=== PATIENT | male | born 1955 | race Caucasian/White ===

== ENCOUNTER → 2017-06-12 | Outpatient (CLI) | payer MEDICARE ==
--- NOTE | 2017-06-12 16:34 | ECHOS ---
Referral Reason:R07.9 chest pain MEASUREMENTS -------- HEIGHT: 172.7 cm WEIGHT: 97.5 kg BP: FINDINGS -------- Utilizing the standard Esteban protocol the patient was exercised for 9 minutes, 0seconds, achieving a maximum heart rate of135 , which is 86% of predicted maximal heart rate. There was physiologic heart rate and blood pressure response to exercise. Max Heart Rate: 135 % of Max Predicted Heart Rate: 86% Rest Heart Rate: 77 Rest BP: 149/74 Max BP: 210/100 Mets Achieved: 10.3 The test was stopped because of shortness of breath. This level of exercise represents a good exercise tolerance for age. Sinus rhythm. In response to stress, the ECG showed no ST-T wave changes (see exercise report for details). Rare PVC's In response to stress, the ECG showed no ST-T wave changes (see exercise report for details). There were normal blood pressure and heart rate responses to stress. LV size, wall thickness and systolic function are normal, with an EF of 60%. Echo images were acquired at peak stress which demonstrated appropriate augmentation of all left ventricular segments with slight decrease in cavity size. CONCLUSIONS -------- 1. This level of exercise represents a good exercise tolerance for age. 2. In response to stress, the ECG showed no ST-T wave changes (see exercise report for details). 3. No 2D echocardiographic evidence of inducible ischemia to achieved workload. MANUFACTURING QUALITY ENGINEER: Chaparrita Cabezas, MARY ANN MTDD
== END | disposition home or self-care (01) ==
LOC: RADNMMAIN 09:07
PROVIDERS: ATTEND Family Medicine
DX: R07.9 Chest pain, unspecified (principal); R06.02 Shortness of breath
CPT/HCPCS: 93017; 93350

== ENCOUNTER 2021-10-16 18:14 | Emergency (ER) | payer MEDICARE ==
[2021-10-16] MEDS ORDERED: guaiFENesin-DM 600/30MG 1 EACH TAB.ER.12H PO STA (21:23)
[2021-10-16] MEDS ORDERED: KETOROLAC 15 MG/ML 1 ML VIAL IVP STA (21:23)
[2021-10-16] MEDS ORDERED: DEXAMETHASONE SOD PHOSPHATE 10 MG/ML 1 ML VIAL IVP STA (21:23)
[2021-10-16] MEDS ORDERED: SODIUM CHLORIDE 0.9% 50 ML IVPB ONE (21:45)
[2021-10-16] MEDS ORDERED: BAMLANIVIMAB (EUA) 700 MG, ETESEVIMAB (EUA) 1,400 MG in SODIUM CHLORIDE 0.9% 50 ML IVPB ONE (21:45)
[2021-10-16] MEDS ORDERED: ALBUTEROL HFA INHALER INHALATION STA (22:20)
--- NOTE | 2021-10-16 22:50 | XR ---
EXAMINATION TYPE: XR chest 1V DATE OF EXAM: 10/16/2021 COMPARISON: NONE HISTORY: Cough TECHNIQUE: Single view FINDINGS: There is some patchy infiltrate with nodular peripheral densities in the left mid and lower lung field. There is lobulated masslike density at the left pulmonary hilum that measures 5 cm. Righ t lung is clear. There is multilevel fusion surgery in the thoracolumbar junction with paraspinal shelia s and screws. There is no heart failure. IMPRESSION: Masslike densities in the left hemithorax. This does not have appearance of pneumonia. Fo llow-up is recommended. CT scan would BE helpful for further evaluation if clinically indicated.
[2021-10-16 23:14] LABS: Basophils % (A) 0 %; Eosinophils # (A) 0.1 k/uL (0-0.7); Eosinophils % (A) 1 %; HCT 44.4 % (39.0-53.0); HGB 15.5 gm/dL (13.0-17.5); Lymphocytes # (A) 0.7 k/uL (1.0-4.8); Lymphocytes % (A) 7 %; MCH 29.7 pg (25.0-35.0); MCV 84.9 fL (80.0-100.0); Mean Platelet Volume 7.9; Monocytes # (A) 0.5 k/uL (0-1.0); Monocytes % (A) 5 %; Neutrophils # (A) 8.8 k/uL (1.3-7.7); Neutrophils % (A) 87 %; Platelet Count 277 k/uL (150-450); RBC 5.23 m/uL (4.30-5.90); RDW 12.9 % (11.5-15.5); WBC 10.1 k/uL (3.8-10.6)
[2021-10-16 23:23] LABS: ALT 161 U/L (4-49); AST 113 U/L (17-59); African American GFR (CKD) >90 (>60 ml/min/1.73 sqM); Albumin 4.1 g/dL (3.5-5.0); Alkaline Phosphatase 91 U/L (38-126); Anion Gap 11 mmol/L; Blood Urea Nitrogen 10 mg/dL (9-20); Calcium 8.8 mg/dL (8.4-10.2); Carbon Dioxide 23 mmol/L (22-30); Chloride 98 mmol/L (98-107); Glucose 148 mg/dL (74-99); Non-African American GFR(CKD) >90 (>60 ml/min/1.73 sqM); Sodium 132 mmol/L (137-145); Total Bilirubin 1.5 mg/dL (0.2-1.3); Total Protein 7.1 g/dL (6.3-8.2)
[2021-10-16 23:26] VITALS: TEMP 98.7
[2021-10-16] MEDS ORDERED: RX INFO: IV CONTRAST WAS GIVEN 1 EACH MISC MISCELLANE PRN (23:30)
--- NOTE | 2021-10-17 00:54 | CT ---
EXAMINATION TYPE: CT chest w con DATE OF EXAM: 10/17/2021 COMPARISON: None HISTORY: llung mass CT DLP: 466.3 mGycm Automated exposure control for dose reduction was used. CONTRAST: Performed with IV Contrast, patient injected with 100 mL of Isovue 300. There is lobulated partly calcified mass like density in the anterior mediastinum. This measures 8.5 x 7 cm. There is extensive masslike density involving the chest wall posteriorly and laterally in the left lower lobe. This measures up to 3.5 cm in thickness and there are small scattered calcification s. There is contrast opacification of the pulmonary arteries. I see no filling defects. Thoracic aorta i s intact. There is no aneurysm or dissection. There is some minimal interstitial density in the dwight shasta right upper lobe. There are small areas of subpleural interstitial density in the posterior rig ht lower lobe. There is no sign of right pleural effusion. There is no definite pleural fluid on the left side. There is some degenerative spurring at the thoracolumbar junction with anterior wedging. There is pos terior fusion surgery with spinal rods and screws stabilizing 8 compression fracture of T12. There is 30% loss of height. There is mild thoracolumbar kyphotic deformity. IMPRESSION: Extensive pleural-based masses in the left hemithorax in the left lower lobe region as well as large lobulated anterior mediastinal mass also involving the left pulmonary hilum. There are scattered punc decker calcifications. This could relate to advanced mesothelioma. Also consider lymphoma. No evidence of pulmonary embolism.
--- NOTE | 2021-10-17 01:30 | ED ---
SOB HPI - General Chief Complaint: Shortness of Breath Stated Complaint: sob Time Seen by Provider: 10/16/21 21:24 Source: patient Mode of arrival: wheelchair Limitations: no limitations - History of Present Illness Initial Comments: 65 year-old male patient presents to the emergency department for evaluation of shortness of breath, cough, nausea, and body aches. States symptoms started about three days ago. States last night his symptoms seemed to worsen and he had a difficult time breathing. States he had to sit up in his recliner. He denies any fever or chills. Denies sputum production with his cough. Denies vomiting or diarrhea. He has had decreased appetite but is able to eat and drink. He does have history of COPD. Denies any other medical problems. His physician was supposed to call him in some medications, but never reached his pharmacy. - Related Data Previous Rx's Medication Instructions Recorded Albuterol Sulfate [Proair Hfa] 1 - 2 puff INHALATION Q6HR PRN 10/17/21 #8.5 gm Dexamethasone 6 mg PO DAILY #9 tablet 10/17/21 Allergies Allergy/AdvReac Type Severity Reaction Status Date / Time Penicillins Allergy Unknown Verified 10/16/21 18:55 Review of Systems ROS Statement: Those systems with pertinent positive or pertinent negative responses have been documented in the HPI. ROS Other: All systems not noted in ROS Statement are negative. Past Medical History Past Medical History: COPD History of Any Multi-Drug Resistant Organisms: None Reported Past Surgical History: Back Surgery Past Psychological History: No Psychological Hx Reported Smoking Status: Former smoker Past Alcohol Use History: None Reported Past Drug Use History: Marijuana General Exam Limitations: no limitations General appearance: alert, in no apparent distress, other (This is a well- developed, well-nourished adult male patient in no acute distress.) Eye exam: Present: normal appearance, PERRL, EOMI. Absent: scleral icterus, conjunctival injection, periorbital swelling ENT exam: Present: normal exam, normal oropharynx, mucous membranes moist Respiratory exam: Present: normal lung sounds bilaterally. Absent: respiratory distress, wheezes, rales, rhonchi, stridor Cardiovascular Exam: Present: regular rate, normal rhythm, normal heart sounds. Absent: systolic murmur, diastolic murmur, rubs, gallop, clicks GI/Abdominal exam: Present: soft, normal bowel sounds. Absent: distended, tenderness, guarding, rebound, rigid Neurological exam: Present: alert, oriented X3, CN II-XII intact Psychiatric exam: Present: normal affect, normal mood Skin exam: Present: warm, dry, intact, normal color. Absent: rash Course Vital Signs 10/16/21 10/16/21 10/16/21 18:55 23:25 23:30 Temperature 98.5 F 98.7 F Pulse Rate 78 81 Respiratory 24 22 24 Rate Blood Pressure 157/91 157/80 O2 Sat by Pulse 98 98 Oximetry 10/17/21 10/17/21 00:00 01:51 Temperature Pulse Rate 88 74 Respiratory 22 18 Rate Blood Pressure 149/82 142/74 O2 Sat by Pulse 97 94 L Oximetry Medical Decision Making - Medical Decision Making 65-year-old male patient presenting to the emergency department for evaluation of upper respiratory symptoms, cough, shortness of breath the last 2-3 days. Physical examination did reveal clear equal lung sounds. He is afebrile. He was tested and did test positive for COVID. He did meet criteria to receive monoclonal antibodies. Chest xray did reveal mass-like densities in the left lung. CT chest was obtained and showed evidence for large mediastinal and peripheral lung masses which could be consistent with mesothelioma or lymphoma. I did discuss these findings with the patient informed him that these were most likely related to cancer. Patient does prefer to be discharged home to follow up outpatient with his primary care physician and oncology. He did tolerate monoclonal antibody infusion without difficulty. He is given steroids and inhaler. No signs are unremarkable. Return parameters were discussed in detail. He verbalizes understanding and agrees with this plan. Case discussed with my attending Dr. Gar. - Lab Data Result diagrams: 10/16/21 23:02 10/16/21 23:02 Lab Results 10/16/21 10/16/21 10/16/21 Range/Units 19:02 23:02 23:02 WBC 10.1 (3.8-10.6) k/uL RBC 5.23 (4.30-5.90) m/uL Hgb 15.5 (13.0-17.5) gm/dL Hct 44.4 (39.0-53.0) % MCV 84.9 (80.0-100.0) fL MCH 29.7 (25.0-35.0) pg MCHC 35.0 (31.0-37.0) g/dL RDW 12.9 (11.5-15.5) % Plt Count 277 (150-450) k/uL MPV 7.9 Neutrophils % 87 % Lymphocytes % 7 % Monocytes % 5 % Eosinophils % 1 % Basophils % 0 % Neutrophils # 8.8 H (1.3-7.7) k/uL Lymphocytes # 0.7 L (1.0-4.8) k/uL Monocytes # 0.5 (0-1.0) k/uL Eosinophils # 0.1 (0-0.7) k/uL Basophils # 0.0 (0-0.2) k/uL Sodium 132 L (137-145) mmol/L Potassium 4.0 (3.5-5.1) mmol/L Chloride 98 (98-107) mmol/L Carbon Dioxide 23 (22-30) mmol/L Anion Gap 11 mmol/L BUN 10 (9-20) mg/dL Creatinine 0.70 (0.66-1.25) mg/dL Est GFR (CKD-EPI)AfAm >90 (>60 ml/min/1.73 sqM) Est GFR (CKD-EPI)NonAf >90 (>60 ml/min/1.73 sqM) Glucose 148 H (74-99) mg/dL Calcium 8.8 (8.4-10.2) mg/dL Total Bilirubin 1.5 H (0.2-1.3) mg/dL AST 113 H (17-59) U/L ALT 161 H (4-49) U/L Alkaline Phosphatase 91 (38-126) U/L Total Protein 7.1 (6.3-8.2) g/dL Albumin 4.1 (3.5-5.0) g/dL Coronavirus (PCR) Detected A (Not Detectd) - Radiology Data Radiology results: report reviewed, image reviewed One view x-ray of the chest is obtained. Report was reviewed in its entirety. Impression by Dr. Barcenas shows masslike densities in the left hemithorax. This does not have appearance of pneumonia. CT chest with contrast was obtained. Report was reviewed in its entirety. Impression by Dr. Barcenas shows extensive pleural based masses in the left hemithorax on the left lower lobe region as well as a large lobulated anterior mediastinal mass also involving the left pulmonary hilum. There are scattered punctate calcifications. This could relate to advanced mesothelioma. Also consider lymphoma. No evidence of pulmonary embolism. Disposition Clinical Impression: COVID-19, Mass of left lung, Mediastinal mass Disposition: HOME SELF-CARE Condition: Good Instructions (If sedation given, give patient instructions): Coronavirus Disease 2019 (COVID-19), Lung Cancer (DC) Additional Instructions: Follow-up with the oncologist as soon as possible. Follow-up with your primary care physician for recheck in 1-2 days. Take the medications as directed. Return for any new, worsening, or concerning symptoms. Prescriptions: Dexamethasone 6 mg PO DAILY #9 tablet Albuterol Sulfate [Proair Hfa] 1 - 2 puff INHALATION Q6HR PRN #8.5 gm PRN Reason: Shortness Of Breath Is patient prescribed a controlled substance at d/c from ED?: No Referrals: David Malik DO [Primary Care Provider] - 1-2 days Delgado Nj MD [STAFF PHYSICIAN] - 1-2 days Time of Disposition: 01:29
[2021-10-17 01:53] VITALS: BP 142/74; PULSE 74; RESP 18
== END 2021-10-17 01:53 | disposition home or self-care (01) ==
LOC: EC 18:14
DX: U07.1 COVID-19 (principal); R91.8 Other nonspecific abnormal finding of lung field; J44.9 Chronic obstructive pulmonary disease, unspecified; Z88.0 Allergy status to penicillin; Z87.891 Personal history of nicotine dependence
CPT/HCPCS: 99285 ×2; 96375 ×2; 36415; 94640; 80053; 85025; 87635; 71045; 71260; M0243; J1100; J1885; Q9967; J3490; 96374

== ENCOUNTER 2021-10-21 02:56 | Emergency (ER) | payer MEDICARE ==
--- NOTE | 2021-10-21 03:20 | ED ---
SOB HPI - General Source: EMS Mode of arrival: EMS Limitations: no limitations - History of Present Illness MD Complaint: shortness of breath -: days(s) Consistency: constant Improves With: nothing Worsens With: nothing Known History Of: COPD Associated Symptoms: cough Treatments Prior to Arrival: none <Julian Gar - Last Filed: 10/21/21 07:16> <Aubrey Byrd - Last Filed: 10/21/21 09:51> - General Chief Complaint: Shortness of Breath Stated Complaint: Difficulty Breathing Time Seen by Provider: 10/21/21 03:06 - History of Present Illness Initial Comments: This patient is 65-year-old man who presents to be evaluated for dyspnea. The patient states that he started to feel bad last week. He came here on Thursday, was found to be code positive and also at that time was diagnosed with a left lung mass. The patient was given the monoclonal antibody therapy, was feeling a little better and went home to have outpatient follow-up for the left lung mass. The patient states that he has not been able to sleep since that time. He states every time he tries to go to sleep he will startle backed consciousness. Patient does continue to have some intermittent fever and chills. No chest p ain. No hemoptysis. No leg pain or swelling. (Julian Gar) - Related Data Home Medications Medication Instructions Recorded Confirmed Albuterol Sulfate [Proair Hfa] 1 - 2 puff INHALATION RT-QID PRN 10/21/21 10/21/21 Multivitamins, Thera [Multivitamin 1 tab PO DAILY 10/21/21 10/21/21 (formulary)] Previous Rx's Medication Instructions Recorded Dexamethasone 6 mg PO DAILY #9 tablet 10/17/21 LORazepam [Ativan] 0.5 mg PO HS 2 Days #2 tab 10/21/21 Allergies Allergy/AdvReac Type Severity Reaction Status Date / Time Penicillins Allergy Anaphylaxis Verified 10/21/21 07:48 Review of Systems ROS Other: All systems not noted in ROS Statement are negative. Constitutional: Reports: fever, chills Respiratory: Reports: cough, dyspnea. Denies: wheezes, hemoptysis Cardiovascular: Denies: chest pain, palpitations, orthopnea, edema, syncope Gastrointestinal: Denies: abdominal pain, vomiting, diarrhea Genitourinary: Denies: dysuria, hematuria Musculoskeletal: Denies: back pain Skin: Denies: rash Neurological: Denies: headache, weakness <CongJulian - Last Filed: 10/21/21 07:16> ROS Other: All systems not noted in ROS Statement are negative. <Aubrey Byrd - Last Filed: 10/21/21 09:51> ROS Statement: Those systems with pertinent positive or pertinent negative responses have been documented in the HPI. Past Medical History Past Medical History: COPD History of Any Multi-Drug Resistant Organisms: None Reported Past Surgical History: Back Surgery Past Psychological History: No Psychological Hx Reported Smoking Status: Former smoker Past Alcohol Use History: None Reported Past Drug Use History: Marijuana <CongJulian - Last Filed: 10/21/21 07:16> General Exam Limitations: no limitations General appearance: alert, anxious Head exam: Present: atraumatic, normocephalic Eye exam: Present: normal appearance. Absent: scleral icterus, conjunctival injection ENT exam: Present: normal oropharynx Neck exam: Present: normal inspection Respiratory exam: Present: rales (Few scattered rales). Absent: respiratory distress, wheezes, rhonchi, stridor, accessory muscle use, decreased breath sounds Cardiovascular Exam: Present: regular rate, normal rhythm, normal heart sounds. Absent: systolic murmur, diastolic murmur, rubs, gallop GI/Abdominal exam: Present: soft. Absent: distended, tenderness, guarding, rebound, rigid, mass Extremities exam: Present: normal inspection, normal capillary refill. Absent: pedal edema, calf tenderness Back exam: Present: normal inspection Neurological exam: Present: alert Skin exam: Present: warm, dry, intact, normal color. Absent: rash <CongJulian - Last Filed: 10/21/21 07:16> Course Vital Signs 10/21/21 10/21/21 10/21/21 03:02 06:36 07:24 Temperature 97.4 F L 98.0 F 98.4 F Pulse Rate 72 85 Respiratory 20 18 16 Rate Blood Pressure 149/93 150/104 131/98 O2 Sat by Pulse 97 94 L Oximetry 10/21/21 09:43 Temperature Pulse Rate Respiratory Rate Blood Pressure O2 Sat by Pulse 95 Oximetry Medical Decision Making - Lab Data Result diagrams: 10/21/21 06:35 10/21/21 06:35 - EKG Data -: EKG Interpreted by Me EKG shows normal: sinus rhythm, axis (Normal), intervals, QRS complexes (Normal), ST-T waves (Normal) Rate: normal (Rate 71 bpm.) <Julian Gar - Last Filed: 10/21/21 07:16> - Lab Data Result diagrams: 10/21/21 06:35 10/21/21 06:35 <Aubrey Byrd - Last Filed: 10/21/21 09:51> - Medical Decision Making Patient is sent out to me by previous shift physician, Dr. Gar. Briefly, patient is a 65-year-old male presents to the emergency department for difficulty in breathing patient was recently diagnosed with rotavirus. All signs upon arrival are within acceptable limits. Physical examination is benign. Patient is anxious appearing. Patient had elevated d-dimer 1.39. He does have a leukocytosis of 17.1. Mildly hyponatremic at 130. Rest of vitals within acceptable limits. Plan at sign out was to follow-up with pending CT angio of the chest CT angio is unremarkable. Does show evidence of chronic virus. Patient reevaluated at bedside at 9:45 AM. He is well-appearing and not dyspneic. Ambulatory pulse ox is normal. Patient be discharged. Patient given 2 tablets to help treat his insomnia. (Aubrey Byrd) - Lab Data Lab Results 10/21/21 10/21/21 10/21/21 Range/Units 06:35 06:35 06:35 WBC 17.1 H (3.8-10.6) k/uL RBC 5.66 (4.30-5.90) m/uL Hgb 16.3 (13.0-17.5) gm/dL Hct 47.3 (39.0-53.0) % MCV 83.5 (80.0-100.0) fL MCH 28.8 (25.0-35.0) pg MCHC 34.5 (31.0-37.0) g/dL RDW 12.3 (11.5-15.5) % Plt Count 501 H (150-450) k/uL MPV 8.0 Neutrophils % 96 % Lymphocytes % 2 % Monocytes % 2 % Eosinophils % 0 % Basophils % 0 % Neutrophils # 16.4 H (1.3-7.7) k/uL Lymphocytes # 0.4 L (1.0-4.8) k/uL Monocytes # 0.3 (0-1.0) k/uL Eosinophils # 0.0 (0-0.7) k/uL Basophils # 0.0 (0-0.2) k/uL Hyperchromasia Slight PT 12.5 H (9.0-12.0) sec INR 1.2 H (<1.2) APTT 21.8 L (22.0-30.0) sec D-Dimer 1.39 H (<0.60) mg/L FEU Sodium 130 L (137-145) mmol/L Potassium 4.1 (3.5-5.1) mmol/L Chloride 99 (98-107) mmol/L Carbon Dioxide 20 L (22-30) mmol/L Anion Gap 11 mmol/L BUN 16 (9-20) mg/dL Creatinine 0.72 (0.66-1.25) mg/dL Est GFR (CKD-EPI)AfAm >90 (>60 ml/min/1.73 sqM) Est GFR (CKD-EPI)NonAf >90 (>60 ml/min/1.73 sqM) Glucose 121 H (74-99) mg/dL Plasma Lactic Acid Jack (0.7-2.0) mmol/L Calcium 9.2 (8.4-10.2) mg/dL Total Bilirubin 2.5 H (0.2-1.3) mg/dL AST 30 (17-59) U/L ALT 52 H (4-49) U/L Alkaline Phosphatase 92 (38-126) U/L Troponin I (0.000-0.034) ng/mL NT-Pro-B Natriuret Pep pg/mL Total Protein 7.0 (6.3-8.2) g/dL Albumin 3.8 (3.5-5.0) g/dL 10/21/21 10/21/21 10/21/21 Range/Units 06:35 06:35 06:35 WBC (3.8-10.6) k/uL RBC (4.30-5.90) m/uL Hgb (13.0-17.5) gm/dL Hct (39.0-53.0) % MCV (80.0-100.0) fL MCH (25.0-35.0) pg MCHC (31.0-37.0) g/dL RDW (11.5-15.5) % Plt Count (150-450) k/uL MPV Neutrophils % % Lymphocytes % % Monocytes % % Eosinophils % % Basophils % % Neutrophils # (1.3-7.7) k/uL Lymphocytes # (1.0-4.8) k/uL Monocytes # (0-1.0) k/uL Eosinophils # (0-0.7) k/uL Basophils # (0-0.2) k/uL Hyperchromasia PT (9.0-12.0) sec INR (<1.2) APTT (22.0-30.0) sec D-Dimer (<0.60) mg/L FEU Sodium (137-145) mmol/L Potassium (3.5-5.1) mmol/L Chloride (98-107) mmol/L Carbon Dioxide (22-30) mmol/L Anion Gap mmol/L BUN (9-20) mg/dL Creatinine (0.66-1.25) mg/dL Est GFR (CKD-EPI)AfAm (>60 ml/min/1.73 sqM) Est GFR (CKD-EPI)NonAf (>60 ml/min/1.73 sqM) Glucose (74-99) mg/dL Plasma Lactic Acid Jack 1.6 (0.7-2.0) mmol/L Calcium (8.4-10.2) mg/dL Total Bilirubin (0.2-1.3) mg/dL AST (17-59) U/L ALT (4-49) U/L Alkaline Phosphatase (38-126) U/L Troponin I <0.012 (0.000-0.034) ng/mL NT-Pro-B Natriuret Pep 115 pg/mL Total Protein (6.3-8.2) g/dL Albumin (3.5-5.0) g/dL Disposition <Julian Gar - Last Filed: 10/21/21 07:16> Is patient prescribed a controlled substance at d/c from ED?: Yes If prescribed controlled substance>3 days was MAPS reviewed?: Prescribed <3 Days <Aubrey Byrd - Last Filed: 10/21/21 09:51> Clinical Impression: COVID-19 Disposition: HOME SELF-CARE Condition: Good Instructions (If sedation given, give patient instructions): Coronavirus Disease 2019 (COVID-19) Prescriptions: LORazepam [Ativan] 0.5 mg PO HS 2 Days #2 tab Referrals: David Malik DO [Primary Care Provider] - 1-2 days
--- NOTE | 2021-10-21 06:16 | XR ---
EXAMINATION TYPE: XR chest 1V portable DATE OF EXAM: 10/21/2021 COMPARISON: 10/16/2021 HISTORY: Short of breath TECHNIQUE: FINDINGS: There is pleural thickening in the left hemithorax. There is increased masslike density laly und the left pulmonary hilum and aortic arch. The right lung is clear. There is no heart failure. The re are chest leads. IMPRESSION: Masslike densities in the left hemithorax without significant change compared to recent e xam. No heart failure.
[2021-10-21] MEDS ORDERED: LORazepam 2 MG/ML INJ IV STA (06:24)
[2021-10-21] MEDS ORDERED: IBUPROFEN 400 MG TAB PO STA (06:24)
[2021-10-21 06:51] LABS: Basophils % (A) 0 %; Eosinophils % (A) 0 %; HCT 47.3 % (39.0-53.0); HGB 16.3 gm/dL (13.0-17.5); Hyperchromasia Slight; Lymphocytes # (A) 0.4 k/uL (1.0-4.8); Lymphocytes % (A) 2 %; MCH 28.8 pg (25.0-35.0); MCHC 34.5 g/dL (31.0-37.0); MCV 83.5 fL (80.0-100.0); Monocytes # (A) 0.3 k/uL (0-1.0); Monocytes % (A) 2 %; Neutrophils # (A) 16.4 k/uL (1.3-7.7); Neutrophils % (A) 96 %; Platelet Count 501 k/uL (150-450); RBC 5.66 m/uL (4.30-5.90); RDW 12.3 % (11.5-15.5); WBC 17.1 k/uL (3.8-10.6)
[2021-10-21 07:03] LABS: ALT 52 U/L (4-49); AST 30 U/L (17-59); African American GFR (CKD) >90 (>60 ml/min/1.73 sqM); Albumin 3.8 g/dL (3.5-5.0); Alkaline Phosphatase 92 U/L (38-126); Anion Gap 11 mmol/L; Blood Urea Nitrogen 16 mg/dL (9-20); Calcium 9.2 mg/dL (8.4-10.2); Carbon Dioxide 20 mmol/L (22-30); Chloride 99 mmol/L (98-107); Glucose 121 mg/dL (74-99); Non-African American GFR(CKD) >90 (>60 ml/min/1.73 sqM); Potassium 4.1 mmol/L (3.5-5.1); Sodium 130 mmol/L (137-145); Total Bilirubin 2.5 mg/dL (0.2-1.3)
[2021-10-21 07:16] LABS: INR 1.2 (<1.2); Prothrombin Time 12.5 sec (9.0-12.0)
[2021-10-21 07:19] LABS: Partial Thromboplastin Time 21.8 sec (22.0-30.0)
[2021-10-21 07:28] VITALS: RESP 16; TEMP 98.4
--- NOTE | 2021-10-21 08:39 | CT ---
EXAMINATION TYPE: CT chest angio for PE DATE OF EXAM: 10/21/2021 COMPARISON: Chest x-ray earlier today and [address] chest 4 days ago. HISTORY: Possible PE, shortness of breath. CT DLP: 498.6 mGycm. Automated Exposure Control for Dose Reduction was Utilized. CONTRAST: CTA scan of the thorax is performed without and with IV Contrast, patient injected with 100 ml mL of Isovue 370, pulmonary embolism protocol. MIP Images are created on CT scanner and reviewed. 3D siomara nstructed images are created on an independent workstation and reviewed. FINDINGS: LUNGS: Lobulated heterogeneous hypodense partially calcified pleural-based masses in the posterior le ft lung are redemonstrated. Some nodular extension along the fissure in the left lung is seen. Increa sing multifocal areas of groundglass opacity in the right lung on current study. No pleural effusion or pneumothorax. Tracheobronchial tree is patent. Elevated left hemidiaphragm redemonstrated. MEDIASTINUM: There is persistent heterogeneous hypodense partially calcified mediastinal mass contigu ous with the pleural based masses causing mass effect at the level of the prevascular space There is suboptimal bolus with most dense contrast in the aorta versus pulmonary arteries, there is no central pulmonary embolism on this study. Smaller segmental and subsegmental PE cannot definitively excluded but not seen. There is abnormal low-density mass posterior to the ascending aorta in the paracarin al region axial image 57 redemonstrated. No cardiomegaly or pericardial effusion is seen. OTHER: Stable simple appearing 5.0 cm thin-walled cyst posteriorly in the right kidney. Postsurgical changes to the thoracolumbar spine is partially imaged. Increased kyphosis remains present. Prominent anterior spurring in the upper lumbar spine redemonstrated. Chronic mild/moderate compression type f racture at T12 level redemonstrated. 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 IMPRESSION: Suboptimal study without central pulmonary embolism. Persistent lobulated left-sided pleu ral based masses with similar mediastinal mass both with local mass effect. Findings worrisome for ne oplasm such as mesothelioma. Increasing multifocal groundglass opacities in the right lung could refl ect developing edema and/or infiltrates noted from most recent CT.
[2021-10-21 10:02] VITALS: BP 137/87; PULSE 90
== END 2021-10-21 10:00 | disposition home or self-care (01) ==
LOC: EC 02:56
DX: U07.1 COVID-19 (principal); J44.9 Chronic obstructive pulmonary disease, unspecified; Z87.891 Personal history of nicotine dependence; Z88.0 Allergy status to penicillin
CPT/HCPCS: 36415; 93005; 85379; 83880; 80053; 83605; 84484; 85025; 85610; 85730; 71045; 71275; 99285; 96374; J2060; Q9967

== ENCOUNTER → 2021-11-07 | Outpatient (CLI) | payer MEDICARE ==
--- NOTE | 2021-11-07 12:29 | XR ---
EXAMINATION TYPE: XR orbit detect foreign body DATE OF EXAM: 11/07/2021 COMPARISON: NONE HISTORY: Possible foreign body TECHNIQUE: 3 views submitted FINDINGS: There is a linear metallic density seen overlying the nasal bones which should be correlate d clinically. May be superficial to the patient. No definite foreign body within the visualized orbit s. Nasal septal deviation and changes of chronic sinusitis noted. IMPRESSION: 1. No metallic foreign body overlying the orbits. However there is a left linear metallic density yovanny ng the nasal bone. Difficult to determine if this is related to superficial structure correlate clini daniel prior to MRI.
--- NOTE | 2021-11-07 14:12 | MR ---
EXAMINATION TYPE: MR brain wo/w con DATE OF EXAM: 11/07/2021 COMPARISON: None HISTORY: Lung cancer, evaluate for metastatic disease. TECHNIQUE: Multiplanar, multisequence images of the brain and brainstem is performed without and with IV contras t, utilizing 8 mL intravenous Gadavist . FINDINGS: Diffusion weighted images demonstrate no evidence of a recent infarct or other diffusion ab normality. There is no extra-axial fluid collection. Scattered white matter hyperintensities are pre sent on inversion recovery T2-weighted seen within the periventricular and subcortical white matter, approximately 20-30 lesions are present. The ventricular system and cisternal spaces are normal in si ze and appearance. The brain volume is age appropriate. Midline structures demonstrate normal morphology. The craniocervical junction appears within normal limits. Post contrast images demonstrate lobular focus of enhancement at the level of the anterior c ommunicating artery in the right measuring approximately 5 to 6 mm, axial postcontrast image #42, bul bous appearance of the basilar tip may be normal variant. The dural venous sinuses appear patent. The visualized sinuses are remarkable for air-fluid level in the left maxillary sinus, bilateral mucosal disease in the maxillary sinuses, ethmoid air cells, sphenoid sinus and the globes are intact. IMPRESSION: Nonspecific white matter demyelination may be due to chronic small vessel ischemic change s. No evident metastatic disease. 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 Sinus disease.
== END | disposition home or self-care (01) ==
LOC: RADMRIMAIN 11:57
PROVIDERS: ATTEND Internal Medicine Hematology & Oncology
DX: C34.32 Malignant neoplasm of lower lobe, left bronchus or lung (principal)
CPT/HCPCS: 70030; 70553; A9585

== ENCOUNTER → 2021-11-08 | Outpatient (CLI) | payer MEDICARE ==
--- NOTE | 2021-11-11 14:57 | PE ---
Nuclear medicine PET/CT HISTORY: C 34.32, lung cancer on the left, initial Patient received 8.4 mCi F-18 FDG intravenously and delayed scanning was performed from skull base to the mid thighs. A localization and attenuation correction CT scan was performed. Correlation CT chest 10/21/2021 Chest and neck: There is no supraclavicular or cervical adenopathy. Groundglass areas of density in t he right upper lobe shows some mild associated uptake, SUV 4.3, an interval finding. There is diffuse lobular pleural-based soft tissue as noted on prior CT with mild associated uptake, SUV only 2.9-3.6 . Extensive abnormal soft tissue along the mediastinum with some associated calcification as noted on CT, there is mediastinal adenopathy, SUV 2.7 in the anterior mediastinum, 2.9 left hilar region. Pos terior pleural-based soft tissue nodule on axial image 97 the right lower lobe measures approximately 15 mm but does not show appreciable uptake. There is some additional subpleural soft tissue density in the right lower lobe which is an interval finding which does not show associated uptake. ABDOMEN: No suspicious uptake. No evident retroperitoneal adenopathy or adrenal mass. No liver mass i s evident. Cortical cyst is present at the upper pole of the right kidney without uptake. No ascites. Rectal uptake may be physiologic. Osseous structures show no associated uptake. Postop changes are noted in the lumbar spine, lower tho racic spine IMPRESSION: Extensive abnormal uptake within the chest and additional findings above
== END | disposition home or self-care (01) ==
LOC: RADPETMAIN 13:29
PROVIDERS: ATTEND Internal Medicine Hematology & Oncology
DX: C34.32 Malignant neoplasm of lower lobe, left bronchus or lung (principal)
CPT/HCPCS: 78815; A9552

== ENCOUNTER 2021-11-13 08:41 | Day surgery (SDC) | payer MEDICARE ==
[2021-11-13 09:24] VITALS: TEMP 98.5
[2021-11-13 09:24] LABS: Mean Platelet Volume 7.7; Platelet Count 378 k/uL (150-450)
[2021-11-13] MEDS ORDERED: ALPRAZolam 0.25 MG TAB PO STA (09:24)
[2021-11-13 09:36] LABS: INR 1.1 (<1.2); Prothrombin Time 11.8 sec (9.0-12.0)
[2021-11-13 10:21] VITALS: RESP 16
--- NOTE | 2021-11-13 10:55 | XR ---
EXAMINATION TYPE: XR chest 1V portable DATE OF EXAM: 11/13/2021 COMPARISON: Chest x-ray dated 10/21/2021 HISTORY: Status post left lung biopsy TECHNIQUE: Single frontal view of the chest is obtained. FINDINGS: There is no evident pneumothorax. Mediastinal and pleural-based masses are again noted. Po stop changes noted to the thoracic lumbar spine. IMPRESSION: No evident complication status post left lung biopsy
--- NOTE | 2021-11-13 11:42 | CT ---
EXAMINATION TYPE: CT biopsy lung LT DATE OF EXAM: 11/13/2021 HISTORY: C 34.32, left lung cancer COMPARISON: PET/CT 11/08/2021 Maximal barrier technique was utilized, hand hygiene obtained with soap and water. The skin overlyin g a suitable path to the left pleural-based posterior portion of the mass was localized using CT and the overlying skin was prepped and draped. Lidocaine used for local anesthesia. A skin tonya made wi th a scalpel. Using CT guidance, access was gained to the lesion with a 18-gauge core needle. Core specimen submitted to cytology. 2 pass(es) performed in all. Following the procedure no immediate c omplications. The patient is discharged in stable condition. Hemostasis achieved. IMPRESSION: SUCCESSFUL CT GUIDED CORE LEFT PLEURAL BIOPSY. PATHOLOGY PENDING. THIS PROCEDURE WAS PERFORMED BY [facility] SANTIAGO.
[2021-11-13 13:20] VITALS: BP 153/94; PULSE 72
--- NOTE | 2021-11-13 13:24 | XR ---
EXAMINATION TYPE: XR chest 1V portable DATE OF EXAM: 11/13/2021 COMPARISON: Chest x-ray 11/13/2021 at earlier time HISTORY: Status post left lung biopsy TECHNIQUE: Single frontal view of the chest is obtained. FINDINGS: There is no interval change. IMPRESSION: No evident complication status post left lung biopsy
== END 2021-11-13 13:25 | disposition home or self-care (01) ==
LOC: RADPROMAIN 08:41
PROVIDERS: ATTEND Internal Medicine Hematology & Oncology
DX: Z88.0 Allergy status to penicillin (principal); C34.92 Malignant neoplasm of unspecified part of left bronchus or lung
CPT/HCPCS: 32408; 36415; 71045; 85049; 85610; 88305; 88341; 88342